=== PATIENT | male | born 1995 | race African-American/Black ===

== ENCOUNTER 2024-11-05 10:44 | Emergency (ER) | payer MEDICAID, SELFPAY ==
--- NOTE | ~2024-11-05 | CT_ITS ---
EXAMINATION: CT ABDOMEN AND PELVIS WITH CONTRAST CLINICAL INFORMATION: Abdominal pain. COMPARISON: None available. TECHNIQUE: Multidetector volumetric images were obtained from the superior aspect of the liver through the pubic symphysis following administration 85 mL of Omnipaque 350 intravenous contrast. Sagittal and coronal reformatted images were obtained on the technologist's workstation. Oral contrast: No This CT examination was performed using dose optimization techniques as appropriate, variously including the following: *Automated exposure control *Adjustment of mA and/or kV according to patient size (this includes techniques or standardized protocols for targeted exams where dose is matched to indication/reason for exam; i.e. extremities or head) *Use of iterative reconstruction technique DLP: 455 mGy-cm FINDINGS: LUNG BASES: The visualized lung bases are unremarkable. LIVER, GALLBLADDER, AND BILIARY TREE: The liver is normal in size, shape, and attenuation. No focal hepatic lesion or biliary ductal dilatation is present. The gallbladder is unremarkable with no evidence of radiopaque gallstones, gallbladder wall thickening, or obvious pericholecystic inflammatory changes. PANCREAS: Unremarkable. SPLEEN: Unremarkable. ADRENAL GLANDS: Unremarkable. KIDNEYS AND URETERS: The kidneys are normal in size, shape, and attenuation. No hydronephrosis, hydroureter, or calculi seen. No perinephric stranding. BLADDER: Unremarkable. GASTROINTESTINAL TRACT: No small or large bowel obstruction. No bowel wall thickening or inflammatory change. Unremarkable appendix. PERITONEAL CAVITY: No intra-abdominal free air or free fluid. No intra-abdominal mass or organized fluid collection/abscess formation. ABDOMINAL WALL: No significant hernia is appreciated. LYMPH NODES: No lymphadenopathy. VASCULAR: Unremarkable. PELVIC VISCERA: The prostate and seminal vesicles are unremarkable. OSSEOUS STRUCTURES: Unremarkable. CT/CT abdomen pelvis w IV con IMPRESSION: 1. No small or large bowel obstruction. No bowel wall thickening or inflammatory change. Unremarkable appendix. 2. No intra-abdominal mass, lymphadenopathy, or ascites. 3. No hydronephrosis or nephrolithiasis. Fleischner guidelines were followed. Electronically signed by: Charles Dee MD 11/05/2024 03:01 PM EST
[2024-11-05 11:11] VITALS: BP 115/78; PULSE 88; RESP 19; TEMP 36.6; O2SAT 98; BMI 24.9
--- NOTE | 2024-11-05 11:12 | ED.GENADULT ---
HPI - General Adult General Chief complaint: Abdominal Pain Stated complaint: Abd pain Time Seen by Provider: 11/05/24 12:44 Source: patient History of Present Illness ED Provider: [facility] narrative: 29-year-old male presenting for abdominal pain. Patient states that he has been experiencing over 4 weeks of abdominal pain. He states that he has been wrapping a sure on the stomach to help with the pain however that is no longer helping. He has no other symptoms denying nausea, vomiting, diarrhea, urinary symptom, testicular pain. He has no known medical conditions and takes no medication Related Data Previous Rx's ?Medication ?Instructions ?Recorded polyethylene glycol 3350 17 17 g PO DAILY #510 grams 11/05/24 gram/dose oral powder (Miralax) Allergies Allergy/AdvReac Type Severity Reaction Status Date / Time No Known Allergies Allergy Verified 11/05/24 11:16 Review of Systems Review of Systems: patient endorses abdominal pain Yes all other systems are reviewed and are negative PMFSH Social History Social History Smoked in Last 30 Days: No Use of substances other than those prescribed or required for medical reasons: No Advance Directives: No Advance Directives Information Provided: Yes Do you have a plan to hurt others: No Plan Physical Exam ED Vital Signs: Vital Signs - 24 hr 11/05/24 11:11 11/05/24 12:21 Temperature 98 F Pulse Rate 88 61 Respiratory Rate 19 14 Blood Pressure 115/78 109/68 Pulse Oximetry 98 100 Oxygen Delivery Method Room Air Room Air BMI result Body Mass Index 24.9 well-appearing male in no acute distress lungs clear to auscultation bilaterally normal S1-S2 regular rate and rhythm abdomen is soft, nondistended with right upper quadrant tenderness to palpation Course Course Course Narrative: RME performed by Poonam Vogt PA-C. Patient is a 29 year old assigned male at presenting to the emergency department with abdominal pain. Detailed physical exam and review of systems are deferred to the primary care pediatrician. Labs and swabs ordered. Patient placed back in the waiting room pending room availability and results. Medications Administered Discontinued Medications Generic Name Dose Route Start Last Admin Trade Name Freq PRN Reason Stop Dose Admin Iohexol 85 ml 11/05/24 14:02 11/05/24 14:02 Iohexol 350 Mg/Ml 75 Ml Infus..Btl IV 11/05/24 14:03 85 ml ONCE ONE Administration Ketorolac Tromethamine 15 mg 11/05/24 12:50 11/05/24 13:09 Ketorolac Tromethamine 15 Mg/Ml Vial IM 11/05/24 12:51 15 mg ONCE ONE Administration Medical Decision Making Medical Decision Making MDM Narrative: 29-year-old male presenting for abdominal pain. I am concerned for the following: biliary disease, constipation, pancreatitis, gastritis Labs and imaging studies ordered Labs showing H&H within normal limits, no white count, normal lfts and lipase, negative troponin I reviewed pt's CT abd pel and noted moderat amount of stool; the radiologist impression was negative for acute pathology I discussed findings with patient. I provided him with home care/followup instructions and sent script for miralax to his pharmacy and he was subsequently discharged Lab Data 11/05/24 11:45 11/05/24 11:45 Labs: Lab Results 11/05/24 11/05/24 11/05/24 Range/Units 11:44 11:45 14:17 WBC 5.7 (4.8-10.8) X10*3/uL RBC 4.42 L (4.60-5.80) X10*6/uL Hgb 13.4 L (14.0-18.0) g/dl Hct 42.2 (42.0-52.0) % MCV 95.5 (80.0-98.0) fL MCH 30.3 (27.0-33.0) pg MCHC 31.8 (31.0-36.0) g/dl RDW 11.5 (11.0-16.0) % Plt Count 192 (160-400) X10*3/uL MPV 10.9 (9.4-12.4) fL Immature Gran % (Auto) 0.3 (0.0-0.4) % Neut % (Auto) 40.0 L (45-73) % Lymph % (Auto) 49.3 H (20-40) % [place] % (Auto) 8.5 (2-11) % Eos % (Auto) 1.6 (0-4) % Baso % (Auto) 0.3 (0-2) % Lymph # (Auto) 2.8 (1.2-4.9) X10*3/uL [place] # (Auto) 0.5 (0.1-1.2) X10*3/uL Eos # (Auto) 0.1 (0.0-0.4) X10*3/uL Baso # (Auto) 0.0 (0.0-0.2) X10*3/uL Abs Immat Gran (auto) 0.02 (0.00-0.03) X10*3/uL Absolute Neuts (auto) 2.3 (2.0-8.3) x10*3/uL Absolute Nucleated RBC 0.000 (0.0-0.012) X10*3/uL Nucleated RBC % (auto) 0.0 (0.0-0.2) /100WBC Sodium 136 (135-145) mmol/L Potassium 4.0 (3.3-5.1) mmol/L Chloride 101 (96-108) mmol/L Carbon Dioxide 31 H (22-29) mmol/L Anion Gap 8 L (12-20) BUN 13 (9-16) mg/dL Creatinine 0.86 (0.5-1.4) mg/dL Estim Creat Clear Calc 148.6 Estimated GFR > 60 Random Glucose 88 (60-115) mg/dL Calcium 9.5 (8.4-10.2) mg/dL Magnesium 1.9 (1.6-2.6) mg/dL Total Bilirubin 0.6 (0.0-1.0) mg/dL Direct Bilirubin 0.2 (0.0-0.5) mg/dL AST 25 (5-37) U/L ALT 18 (0-40) U/L Alkaline Phosphatase 65 (39-117) U/L Troponin I High Sens < 2.7 (<3.5-35.0) ng/L Total Protein 8.1 H (6.5-8.0) g/dL Albumin 4.3 (3.5-5.0) g/dL Lipase 17 (8-78) U/L Urine Color Yellow Urine Appearance Clear Urine pH 7.5 (5.0-9.0) Ur Specific [place] 1.020 (1.005-1.025) Urine Protein Negative (Neg-Trace) mg/dL Urine Glucose (UA) Negative (Negative) mg/dL Urine Ketones Negative (Negative) mg/dL Urine Blood Negative (Negative) Urine Nitrite Negative (Negative) Ur Leukocyte Esterase Negative (Negative) Influenza Type A (PCR) NEGATIVE (Negative) Influenza Type B (PCR) NEGATIVE (Negative) RSV RNA Qual (PCR) NEGATIVE (Negative) SARS-CoV-2 RNA (RT-PCR) NEGATIVE (Negative) Discharge Plan Discharge Clinical Impression: Abdominal pain Qualifiers: Abdominal location: right upper quadrant Qualified Code(s): R10.11 - Right upper quadrant pain Patient Disposition: Home, Self-Care Instructions: Constipation (DC) Additional Instructions: Please follow up with your primary care provider in the next 24-48 hours. If you develop any new or worsening symptoms please return to the emergency department Prescriptions: New polyethylene glycol 3350 [Miralax] 17 gram/dose powder 17 g PO DAILY Qty: 510 0RF Print Language: Radha Pettit
[2024-11-05 11:50] LABS: MANUAL DIFF FLAG NO
[2024-11-05 11:52] LABS: Appearance Urine Clear; Color Urine Yellow; Glucose Urine UA Negative (Negative); Leukocyte Esterase Urine Negative (Negative); Nitrite Urine Negative (Negative); PH 7.5 (5.0-9.0); Urine Blood Negative (Negative); Urine Ketones Negative (Negative); Urine Protein Negative (Neg-Trace)
[2024-11-05 11:53] LABS: Basophils Percent Auto 0.3 % (0-2); Eosinophils Absolute Auto 0.1 X10*3/uL (0.0-0.4); Eosinophils Percent Auto 1.6 % (0-4); Hematocrit 42.2 % (42.0-52.0); Hemoglobin 13.4 g/dl (14.0-18.0); Imm Gran Abs Auto 0.02 X10*3/uL (0.00-0.03); Imm Gran Pct Auto 0.3 % (0.0-0.4); Lymphocytes Absolute Auto 2.8 X10*3/uL (1.2-4.9); Lymphocytes Percent Auto 49.3 % (20-40); Mean Corpuscular HGB Conc 31.8 g/dl (31.0-36.0); Mean Corpuscular Hemoglobin 30.3 pg (27.0-33.0); Mean Corpuscular Volume 95.5 fL (80.0-98.0); Mean Platelet Volume 10.9 fL (9.4-12.4); Monocytes Absolute Auto 0.5 X10*3/uL (0.1-1.2); Monocytes Percent Auto 8.5 % (2-11); Neutrophils Absolute Auto 2.3 x10*3/uL (2.0-8.3); Platelet Count 192 X10*3/uL (160-400); Red Blood Count 4.42 X10*6/uL (4.60-5.80); Red Cell Distribution Width 11.5 % (11.0-16.0); White Blood Count 5.7 X10*3/uL (4.8-10.8)
[2024-11-05 12:06] LABS: Alanine Aminotransferase 18 U/L (0-40); Albumin Level 4.3 g/dL (3.5-5.0); Alkaline Phosphatase 65 U/L (39-117); Anion Gap 8 (12-20); Aspartate Amino Transferase 25 U/L (5-37); Bilirubin Total 0.6 mg/dL (0.0-1.0); Blood Urea Nitrogen 13 mg/dL (9-16); Calcium 9.5 mg/dL (8.4-10.2); Carbon Dioxide 31 mmol/L (22-29); Chloride 101 mmol/L (96-108); Creatinine Clr Calc Pharmacy 148.6; Estimated Glomerular Filt Rate > 60; Glucose Random 88 mg/dL (60-115); Magnesium 1.9 mg/dL (1.6-2.6); Sodium 136 mmol/L (135-145); Total Protein 8.1 g/dL (6.5-8.0)
--- NOTE | 2024-11-05 12:20 | PC.NURSE ---
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
[2024-11-05 12:21] VITALS: BP 109/68; PULSE 61; RESP 14; O2SAT 100
[2024-11-05 12:30] LABS: Influenza A PCR NEGATIVE (Negative); Influenza B PCR NEGATIVE (Negative); Resp Syncy Virus RNA Qual PCR NEGATIVE (Negative); SARS COV2 PCR INHOUSE NEGATIVE (Negative)
--- NOTE | 2024-11-05 12:45 | ECG_ITS ---
Test Reason : abd pain Blood Pressure : / mmHG Vent. Rate : 064 BPM Atrial Rate : 064 BPM P-R Int : 180 ms QRS Dur : 090 ms QT Int : 390 ms P-R-T Axes : 080 -05 009 degrees QTc Int : 402 ms Normal sinus rhythm Septal infarct , age undetermined Abnormal ECG No previous ECGs available Referred By: Eric Padilla Electronically Signed By:LEATHA VELA MD
--- NOTE | 2024-11-05 12:50 | PC.NURSE ---
Spoke to Rina in the lab - Lipase and Liver panel can be added on - no order necessary
[2024-11-05 13:03] LABS: Bilirubin Direct 0.2 mg/dL (0.0-0.5); Lipase 17 U/L (8-78)
[2024-11-05] MEDS: Ketorolac Tromethamine 15 MG/ML VIAL IM (13:09)
[2024-11-05] MEDS: iohexoL 350 MG/ML 75 ML INFUS..BTL 85 ML IV (14:02)
[2024-11-05 14:45] LABS: Troponin-I High Sensitivity < 2.7 ng/L (<3.5-35.0)
[2024-11-05 15:58] VITALS: BP 94/60; PULSE 71; RESP 12; TEMP 36.6; O2SAT 99
[2024-11-05 16:37] VITALS: BP 94/60; PULSE 71; RESP 12; TEMP 36.6; O2SAT 99
== END 2024-11-05 16:37 | disposition home or self-care (01) ==
PROVIDERS: Physician Assistant Medical; Emergency Provider Student in an Organized Health Care Education/Training Program
DX: R10.2 Pelvic and perineal pain (principal); R94.31 Abnormal electrocardiogram [ECG] [EKG]; Z79.899 Other long term (current) drug therapy; Z03.818 Encounter for observation for suspected exposure to other biological agents ruled out
CPT/HCPCS: 0241U; 36415; 74177; 80053; 81003; 82248; 83690; 83735; 84484; 85025; 93005; 96372; 99284; 99285; J1885; Q9967

== ENCOUNTER → 2024-11-05 12:45 | Outpatient (BNV) | payer MEDICAID, SELFPAY | PROVIDERS: Emergency Provider Student in an Organized Health Care Education/Training Program; Visit Provider Internal Medicine Cardiovascular Disease | DX: R94.31 Abnormal electrocardiogram [ECG] [EKG] (principal); R10.9 Unspecified abdominal pain | CPT/HCPCS: 93010 ==